=== PATIENT | female | born 1980 | race Two or more races ===

== ENCOUNTER 2016-07-13 17:11 | Emergency (ER) | payer MEDICAID ==
[~2016-07-13] VITALS: Ht 160 cm; Wt 53.9 kg
[2016-07-13 20:19] VITALS: BP 109/70
== END 2016-07-13 20:28 | disposition home or self-care (01) ==
LOC: ED 20:11
DX: O03.9 Complete or unspecified spontaneous abortion without complication (principal); Z3A.13 13 weeks gestation of pregnancy; Z98.890 Other specified postprocedural states
CPT/HCPCS: 36415; 76856; 81001; 84703; 86901

== ENCOUNTER → 2017-03-12 | Outpatient (CLI) | payer OTHER | END | disposition home or self-care (01) | LOC: CFH 08:44 | PROVIDERS: ATTEND Internal Medicine Cardiovascular Disease | DX: R06.02 Shortness of breath (principal) | CPT/HCPCS: 93306 ==